=== PATIENT | female | born 1970 | race Caucasian/White ===

== ENCOUNTER → 2016-11-06 | Outpatient (REF) | payer OTHER ==
[2016-11-06 19:12] LABS: FOLATE > 24.0 NG/ML (>5.4); VITAMIN B12 LEVEL 1246 PG/ML (247-911)
[2016-11-06 19:13] LABS: BASO % 0.8 % (0.0-1.0); EOS # 0.1 K/mm3 (0.0-0.50); EOS % 1.3 % (0.0-3.0); LARGE UNSTAINED CELL # 0.1 K/mm3 (0.0-0.4); LARGE UNSTAINED CELL % 1.5 % (0.0-4.0); LYMPH # 1.9 K/mm3 (1.5-4.5); LYMPH % 26.2 % (24.0-44.0); MEAN CORPUSCULAR HEMOGLOBIN 29.1 pg (27.0-33.0); MEAN CORPUSCULAR HGB CONC 32.7 g/dl (32.0-36.5); MONO # 0.3 K/mm3 (0.0-0.8); MONO % 4.8 % (0.0-5.0); NEUTROPHILS # 4.5 K/mm3 (1.8-7.7); NEUTROPHILS % 65.4 % (36.0-66.0); PLATELET COUNT, AUTOMATED 272 k/mm3 (150-450); RED CELL DISTRIBUTION WIDTH 12.7 % (11.5-14.5); WHITE BLOOD COUNT 6.8 K/mm3 (4.0-10.0)
[2016-11-06 19:17] LABS: ALBUMIN 4.1 GM/DL (3.2-5.2); ALBUMIN/GLOBULIN RATIO 1.37 (1.00-1.93); ALKALINE PHOSPHATASE 59 U/L (45-117); ALT/SGPT 12 U/L (12-78); ANION GAP 10 MEQ/L (8-16); AST/SGOT 13 U/L (15-37); BILIRUBIN,TOTAL 0.9 MG/DL (0.2-1.0); BLOOD UREA NITROGEN 10 MG/DL (7-18); CALCIUM LEVEL 8.9 MG/DL (8.5-10.1); CARBON DIOXIDE LEVEL 26 MEQ/L (21-32); CHLORIDE LEVEL 108 MEQ/L (98-107); CREATININE FOR GFR 0.87 MG/DL (0.55-1.02); GLOMERULAR FILTRATION RATE > 60.0 (>58); GLUCOSE, FASTING 84 MG/DL (70-105); POTASSIUM SERUM 3.8 MEQ/L (3.5-5.1); SODIUM LEVEL 144 MEQ/L (136-145); TOTAL PROTEIN 7.1 GM/DL (6.4-8.2)
[2016-11-06 21:35] LABS: ERYTHROCYTE SEDIMENTATION RATE 3 mm/hr (0-20)
[2016-11-10 11:58] LABS: ALBUMIN 4.15 GM/DL (3.29-5.55); ALBUMIN % 58.5 % (55.8-66.1); GAMMA GLOBULIN % 16.1 % (11.1-18.8)
== END ==
LOC: M LABNEURO 17:17
PROVIDERS: ATTEND Psychiatry & Neurology Neurology
DX: G62.9 Polyneuropathy, unspecified (principal)

== ENCOUNTER → 2017-03-27 | Outpatient (CLI) | payer BC, OTHER ==
[~2017-03-27] MED LIST: DULO1CAP3 PO; FOLI1TAB4 PO; IBUP-1022 PO; KRIL1CAP6 PO; MULT1TAB10 PO; NORC1TAB4 PO; TRAZ50TA11 PO; VITA100T92 PO; VITA500055 PO
--- NOTE | 2017-03-27 17:02 | REP ---
REASON: History of lower quadrant pain. COMPARISON: None. Transvesical and transvaginal imaging was obtained. The uterus measures 9.2 x 4.2 x 6 cm. The parenchymal echo pattern is heterogenous. In the anterior uterine body there is a subtle 2 cm sized area of decreased echoes suggestive of early myomatous change. There is incidental Nabothian cysts. The urinary bladder measures 8 x 4 x 10 cm. The right ovary measures 2.1 x 1.7 x 2.4 cm and the left ovary measures 2.5 x 1.6 x 2.1 cm. Both ovaries are within normal limits. The endometrial echo complex measures 3 mm in thickness. IMPRESSION: Uterine myomatous changes are suspected as described above. Signed by Alessio Lemus DO 04/01/2017 04:24 P
--- NOTE | 2017-04-09 12:34 | REPMRS ---
Patient History The patient states she had a clinical breast exam in February 2017. Family history of endometrial cancer in mother at age 34 and breast cancer in maternal aunt at age 58. Patient states she had a uterine ablation 06/2016 Patient states she has lost at least 25lbs since her last mammogram and does not know why. File area calling for out of town priors Digital Mammo Screening Bilat: March 27, 2017 - Exam #: [id number] Bilateral CC and MLO view(s) were taken. Technologist: Jeri Sofia, Technologist Prior study comparison: April 27, 2014, digital bilateral screening mammo, performed at [facility]. FINDINGS: There are scattered fibroglandular densities. There has been no change in the appearance of the mammogram from the prior studies. There is a mild amount of residual fibroglandular tissue which is fairly symmetric. There is no interval development of dominant mass, architectural distortion, or clustered microcalcification suggestive of malignancy. ASSESSMENT: BI-RADS/ACR category 1 mammogram. Negative. Recommendation Routine screening mammogram in 1 year (for women over age 40). This mammogram was interpreted with the aid of an FDA-approved computer-aided dectection system. Electronically Signed By: Cristóbal Mcduffie MD 04/09/17 [id number]
== END ==
LOC: M RAD 14:05
PROVIDERS: ATTEND Nurse Practitioner Women's Health
DX: R10.32 Left lower quadrant pain (principal); Z12.31 Encounter for screening mammogram for malignant neoplasm of breast; Z80.3 Family history of malignant neoplasm of breast; R63.4 Abnormal weight loss
CPT/HCPCS: 76830; 76856; G0202

== ENCOUNTER 2017-05-04 05:50 | Day surgery (SDC) | payer BC, OTHER ==
[2017-05-04] VITALS (8 sets, daily range): BP systolic 115–136; BP diastolic 65–76
[~2017-05-04] VITALS: Ht 162.6 cm; Wt 103.9 kg
[~2017-05-04 05:50] MED LIST changes: -IBUP-1022 PO; -NORC1TAB4 PO
[2017-05-04] MEDS ORDERED: LR 1,000 ML IV SCH ×2 (06:00→11:15)
[2017-05-04] MEDS ORDERED: LR 1,000 ML IV ONE (06:00)
[2017-05-04 06:23] LABS: MEAN CORPUSCULAR HGB CONC 33.1 g/dl (32.0-36.5); MEAN CORPUSCULAR VOLUME 90.6 fl (80.0-96.0); RED CELL DISTRIBUTION WIDTH 13.2 % (11.5-14.5); WHITE BLOOD COUNT 5.8 K/mm3 (4.0-10.0)
[2017-05-04] MEDS ORDERED: METHYLENE BLUE 0.5% (5MG/ML) 10 ML AMP (PROVAYBLUE)(Q9968 PER 1MG) As Ordered ONE (07:19)
[2017-05-04] MEDS ORDERED: SCOPOLAMINE 1.5 MG TRANSDERMAL TOP ONE (07:30)
[2017-05-04] MEDS ORDERED: MIDAZOLAM INJ 2 MG/2 ML VIAL (J2250) As Ordered ONE (07:41)
[2017-05-04] MEDS ORDERED: fentaNYL 100 MCG/2 ML INJECTION (J3010) As Ordered ONE (07:41)
[2017-05-04] MEDS ORDERED: HYDROmorphone HCL 2 MG/ML 1ML VIAL (J1170) As Ordered ONE (07:41)
[2017-05-04] MEDS ORDERED: ACETAMINOPHEN 325 MG SUPP As Ordered ONE (07:49)
[2017-05-04] MEDS ORDERED: ACETAMINOPHEN 650 MG SUPP As Ordered ONE (07:49)
[2017-05-04] MEDS ORDERED: LIDOCAINE 2% JELLY 30 ML As Ordered ONE (07:50)
[2017-05-04] MEDS ORDERED: SEVOFLURANE INHAL SOLN 250 ML BTL As Ordered ONE (08:02)
[2017-05-04] MEDS ORDERED: NEOSTIGMINE 1MG/ML 5 ML SYRINGE (J2710) As Ordered ONE (08:02)
[2017-05-04] MEDS ORDERED: LIDOCAINE 2% INJ 100 MG/5 ML SDV (FOR ANES.) As Ordered ONE (08:02)
[2017-05-04] MEDS ORDERED: PROPOFOL 200 MG/20 ML VIAL As Ordered ONE (08:02)
[2017-05-04] MEDS ORDERED: KETOROLAC 60 MG/2 ML VIAL (J1885) As Ordered ONE (08:03)
[2017-05-04] MEDS ORDERED: METOCLOPRAMIDE INJ 10MG/2ML VIAL (J2765) As Ordered ONE (08:03)
[2017-05-04] MEDS ORDERED: GLYCOPYRROLATE INJ 0.2 MG/ML 2 ML VIAL As Ordered ONE (08:03)
[2017-05-04] MEDS ORDERED: dexameTHASONE 4 MG/ML 1ML VIAL (J1100) As Ordered ONE (08:03)
[2017-05-04] MEDS ORDERED: ONDANSETRON 4MG/2ML VIAL (J2405) As Ordered ONE (08:03)
[2017-05-04] MEDS ORDERED: ROCURONIUM BROMIDE 50 MG/5 ML VIAL/SYRINGE As Ordered ONE ×2 (08:32→09:46)
[2017-05-04] MEDS ORDERED: DESFLURANE 240 ML INHALANT As Ordered ONE (10:14)
[2017-05-04] MEDS ORDERED: PHENYLephrine HCL 500 MCG/5 ML (100MCG/ML) SYRINGE (J2370) As Ordered ONE (10:27)
[2017-05-04] MEDS ORDERED: NORCO, ANEXSIA 5/325MG TABLET (HYDROcodone/ACETAMINOPHEN) PO PRN (11:15)
[2017-05-04] MEDS ORDERED: MORPHINE 2 MG/ML 1ML SYRINGE IV PRN (11:15)
[2017-05-04] MEDS ORDERED: fentaNYL 100 MCG/2 ML INJECTION (J3010) IV PRN (11:15)
[2017-05-04] MEDS ORDERED: ONDANSETRON 4MG/2ML VIAL (J2405) IV PRN (11:15)
[2017-05-04] MEDS ORDERED: IBUPROFEN 600 MG TAB PO PRN (11:15)
[2017-05-04] MEDS: LR 1,000 ML IV SCH ×2 (13:23→19:15)
--- NOTE | 2017-05-04 19:24 | RO ---
DATE OF PROCEDURE: 05/04/2017 PREOPERATIVE DIAGNOSES: Failed ablation, pain, dyspareunia, suspected uterine scarring. POSTOPERATIVE DIAGNOSES: Failed ablation, pain, dyspareunia, suspected uterine scarring with confirmation of significant scarring with the anterior uterus with the bladder adherent into a sort of V-shaped scar or defect in the anterior wall of the uterus. OPERATIVE PROCEDURE: Robotic assisted vaginal hysterectomy with bilateral salpingo-oophorectomy, lysis of adhesions, and cystourethroscopy done due to the atypical scarring of this uterus. SURGEON: Ryann Jewell MD MATH TUTOR: Adrianna Sandoval ANESTHESIA: General endotracheal anesthesia. BRIEF DESCRIPTION OF PROCEDURE AND FINDINGS: Maile was brought to the operating room where sufficient general endotracheal anesthesia was induced and she was prepped, draped and positioned in the usual sterile fashion with a uterine manipulator placed and attention turned to the abdomen. A semilunar incision was made below the umbilicus. Sharp and blunt dissection were continued to the level of the rectus fascia which was elevated with Matilda clamps, transversely incised, secured with #0 Vicryl retention suture and then the peritoneum entered under direct visualization and the Connor cannula placed under direct visualization. CO2 insufflation was then begun. After adequate CO2 insufflation the robotic camera was placed and the peritoneal cavity was visualized. There were normal shiny peritoneal surfaces throughout. Note without ascies, exudate, nor excresence, but there were extensive scars over the lower uterine segment and the bladder consistent with the patient's previous section history. Dissection during the case showed a V-shaped defect in the anterior uterine wall into which the bladder dove in an atypical fashion. As a result of the patient's abnormal anatomy, decision was made intraoperatively to add cystourethroscopy to the case in order to investigate for any injury due to this. Two left-sided and one right-sided robotic ports were then placed and the patient was placed into Trendelenburg and the robot was docked in the usual fashion. Attention was then turned to work at the robotic controls. The infundibulopelvic ligaments on both sides were isolated, cauterized and transected. The ureters were fortunately visible on both sides and we were able to follow the tract of these to see that although the ureter on the left side was close to the ureterosacral, just below it as expected and even further below on the right side we were able to safely dissect the ovaries away from the pelvic sidewall and continue the dissection through the broad ligament, to take the round on the left side in the typical fashion. On the right side, the round ligament was attenuated and initially not visible. She had very altered anatomy there with the scarring, but we were able with manipulation to carefully dissect through the broad, backfill the bladder to see its location, as we typically can and then identify the appropriate location for the round and in that dissection, yes, did indeed confirm that that was the round ligament despite the distortion of the tissue. We then continued our dissection across the anterior uterus where multiple layers of adhesions were noted and as we continued this dissection, a V-shaped defect in the anterior uterine wall was clearly visible and the bladder sort of descended into this defect and so we had to carefully cut around this. We did not use cautery during this dissection. That does make it slightly oozy during the case, but that is certainly preferable to bladder injury and so we worked cold around this area of atypical scarring. But we had to free and isolate the lateral vascular supply and this had to be cauterized and then transected and having controlled the vascular supply and dissected the bladder away towards the midline. We then turned posteriorly where we were able to see the cup and start the colpotomy posteriorly, leaving of course the ureterosacral secure and working from above those around laterally. We completed the colpotomy 180 degrees and then had to turn to the front and essentially use the cup to define the anatomy so that we could free the cervix and then free these adhesions to the bladder which were definitely atypical. There was definitely more of a blood supply on the left side. Multiple accessory vessels recruited and so there was some concern as well for ureteral injury. Of course, we gave the patient methylene blue as we were working and having finally freed the uterus, we then closed the cuff with two layers of V-Loc with good approximation and hemostasis achieved. Of course, the ureterosacrals were incorporated as typical. When we had good hemostasis there and had irrigated and confirmed this, we went ahead and turned our attention to the cystoscopy. After the robot had been undocked and the patient was removed from Trendelenburg, etc, the Betancourt catheter was removed and the cystoscope placed. We were already able to see some blue urine and we rinsed out the bladder cavity with sterile fluid, so as to clear up the fluid from the methylene blue and we were subsequently able to see jets of urine from both ureters, clear coloration coming through as well as to identify that there was no suture nor injury visible to the bladder despite the very atypical anatomy from above. So fortunately, the cystourethroscopy showed normal function of the ureters. No injury indicated and no injury of the bladder as well, so the cystoscopy was completed, the Betancourt was replaced and then the abdominal wounds were closed. The umbilical wounds closed at the fascial layer with #0 Vicryl retention sutures and then #3-0 Vicryl in subcuticular stitch was used to the skin in all four wounds. Dry sterile dressing were then applied. Estimated blood loss for the procedure was 150 mL. Fluids replaced was Crystalloid. Complications: None. CONDITION AND DISPOSITION: Maile tolerated the procedure well and was recovering in the recovery room in good condition.
[2017-05-05] VITALS: BP 106/57
[2017-05-05 04:00] VITALS: BP 119/71
[2017-05-05 07:23] LABS: MEAN CORPUSCULAR HEMOGLOBIN 30.5 pg (27.0-33.0); MEAN CORPUSCULAR HGB CONC 33.7 g/dl (32.0-36.5); MEAN CORPUSCULAR VOLUME 90.7 fl (80.0-96.0); RED CELL DISTRIBUTION WIDTH 13.2 % (11.5-14.5); WHITE BLOOD COUNT 7.4 K/mm3 (4.0-10.0)
[2017-05-05 08:00] VITALS: BP 128/76
[2017-05-05] MEDS ORDERED: IBUP-1022 PO (08:29)
[2017-05-05] MEDS ORDERED: NORC1TAB4 PO (08:29)
== END 2017-05-05 10:00 | disposition home or self-care (01) ==
LOC: M SDC 05:50 → M PED 12:28 → M SDC 05-05 10:00
PROVIDERS: ATTEND Obstetrics & Gynecology
DX: R10.2 Pelvic and perineal pain (principal); N94.10 Unspecified dyspareunia; N72 Inflammatory disease of cervix uteri; N73.6 Female pelvic peritoneal adhesions (postinfective); E16.2 Hypoglycemia, unspecified; Z88.1 Allergy status to other antibiotic agents; Z88.8 Allergy status to other drugs, medicaments and biological substances; Z79.899 Other long term (current) drug therapy; F41.9 Anxiety disorder, unspecified; Z98.84 Bariatric surgery status
CPT/HCPCS: 36415; 58571; 85027; 86850; 86900; 86901; 88307; J0690; J1100; J1170; J1885; J2250; J2370; J2405; J2710; J2765; J3010; Q9968

== ENCOUNTER → 2017-11-23 | Outpatient (REF) | payer OTHER ==
[2017-11-23 11:45] LABS: IONIZED CALCIUM 4.7 MG/DL (4.5-5.3)
[2017-11-23 12:01] LABS: TOTAL 25(OH) VITAMIN D 39.9 NG/ML (30.0-100.0); VITAMIN B12 LEVEL 847 PG/ML (247-911)
[2017-11-23 12:25] LABS: IRON (FE) 110 UG/DL (50-170); MAGNESIUM LEVEL 2.2 MG/DL (1.8-2.4)
[2017-12-01 10:13] LABS: VITAMIN B6,PYRIDOXAL PHOSPHATE 31.3 ug/L
[2017-12-01 10:15] LABS: VITAMIN A, RETINOL LEVEL 43.6 ug/dL
[2017-12-01 10:17] LABS: COPPER PLASMA 115 ug/dL; SELENIUM LEVEL BLOOD 232 ug/L
[2017-12-01 10:19] LABS: VITAMIN B1 LEVEL WHOLE BLOOD 298.8 High nmol/L; ZINC PLASMA 96
== END ==
LOC: M SFHCPLAZ 08:33
DX: E66.01 Morbid (severe) obesity due to excess calories (principal)
CPT/HCPCS: 82525

== ENCOUNTER 2018-03-28 14:10 | Emergency (ER) | payer BC, OTHER | END 2018-03-28 15:30 | disposition home or self-care (01) | LOC: M ED 14:10 | DX: F41.9 Anxiety disorder, unspecified (principal); D64.9 Anemia, unspecified; E53.8 Deficiency of other specified B group vitamins; G43.909 Migraine, unspecified, not intractable, without status migrainosus; Z88.8 Allergy status to other drugs, medicaments and biological substances; Z88.1 Allergy status to other antibiotic agents | CPT/HCPCS: 99282 ==

== ENCOUNTER → 2018-04-12 | Outpatient (REF) | payer OTHER ==
[2018-04-12 12:31] LABS: VITAMIN B12 LEVEL 478 PG/ML (247-911)
== END ==
LOC: M SFHCPLAZ 08:19
DX: Z86.39 Personal history of other endocrine, nutritional and metabolic disease (principal)
CPT/HCPCS: 82607